=== PATIENT | male | born 1970 | race Caucasian/White ===

== ENCOUNTER 2024-01-30 14:22 | Inpatient (IN) | payer MEDICAID ==
[~2024-01-30] VITALS: Ht 170.2 cm; Wt 68.0 kg
[2024-01-30 14:22] VITALS: BP 164/108; PULSE 82; RESP 14; TEMP 97.1; O2SAT 100
[2024-01-30] MEDS: ASPIRIN 81 MG TAB.CHEW PO ONE (14:39)
[2024-01-30 15:14] LABS: BASOPHILS # (AUTO) 0.1 K/uL (0.00-0.22); BASOPHILS % (AUTO) 1.3 % (0.0-2.0); EOSINOPHILS # (AUTO) 0.1 K/uL (0-0.4); EOSINOPHILS % (AUTO) 2.6 % (0.0-4.0); HEMATOCRIT 33.4 % (36-52); HEMOGLOBIN 11.2 g/dL (12.0-18.0); LYMPHOCYTES # (AUTO) 1.3 K/uL (2.0-11.5); LYMPHOCYTES % (AUTO) 27.8 % (20.5-51.1); MEAN CORPUSCULAR HEMOGLOBIN 29 pg (27-31); MEAN CORPUSCULAR HGB CONC 34 g/dL (33-37); MEAN CORPUSCULAR VOLUME 86.9 fL (80-94); MONOCYTES # (AUTO) 0.5 K/uL (0.8-1.0); MONOCYTES % (AUTO) 10.2 % (1.7-9.3); NEUTROPHILS # (AUTO) 2.7 K/uL (1.8-7.7); NEUTROPHILS % (AUTO) 58.1 % (42.2-75.2); PLATELET COUNT (AUTO) 222 K/uL (140-450); RED BLOOD CELL COUNT(AUTO) 3.84 MIL/uL (4.20-6.10); RED CELL DISTRIBUTION WIDTH 14.5 % (11.6-13.7); WHITE BLOOD COUNT (AUTO) 4.6 K/uL (4.8-10.8)
[2024-01-30 15:36] LABS: CALCIUM 8.4 mg/dL (8.5-10.1); CARBON DIOXIDE 24.6 mmol/L (21-32); POTASSIUM 4.6 mmol/L (3.5-5.1)
[2024-01-30] MEDS ORDERED: [UNRECOGNIZED DRUG - CODE] PO (16:32)
[2024-01-30] MEDS ORDERED: NIFE60TA58 PO (16:32)
[2024-01-30] MEDS ORDERED: CLON0.1T16 PO (16:32)
[2024-01-30] MEDS ORDERED: DICL100G32 TP (16:32)
[2024-01-30] MEDS ORDERED: DAPA5TAB PO (16:32)
[2024-01-30] MEDS ORDERED: CHLO25TA33 PO (16:32)
[2024-01-30] MEDS ORDERED: ATOR40TA40 PO (16:32)
[2024-01-30] MEDS ORDERED: LORazepam 1 MG TAB PO PRN (19:15)
[2024-01-30] MEDS ORDERED: ACETAMINOPHEN 325 MG TAB PO PRN (19:15)
[2024-01-30] MEDS ORDERED: ZOLPIDEM 5 MG TAB PO PRN (19:15)
[2024-01-30] MEDS ORDERED: HYDROcodone/APAP 5/325 MG 1 TAB TAB PO PRN (19:15)
[2024-01-30] MEDS ORDERED: ONDANSETRON 4 MG/2 ML VIAL IVP PRN (19:15)
[2024-01-30] MEDS ORDERED: ALUMINUM HYD/MAG/SIMETHICONE 30 ML UDC PO PRN (19:20)
[2024-01-30] MEDS ORDERED: MORPHINE SULFATE 4 MG/ML SYR IV PRN (19:20)
[2024-01-30] MEDS ORDERED: NITROGLYCERIN 0.4 MG TAB SL PRN (19:20)
[2024-01-30] MEDS: hydrALAZINE 20 MG/ML VIAL IVP PRN (20:57)
[2024-01-30] MEDS: carvediloL 6.25 MG TAB PO SCH (21:07)
[2024-01-30] MEDS: SIMVASTATIN 40 MG TAB PO SCH (21:08)
[2024-01-30 21:55] VITALS: BP 147/63; PULSE 77; RESP 18; TEMP 97.3; O2SAT 100
[2024-01-30 21:56] VITALS: PULSE 80
[2024-01-31] VITALS (8 sets, daily range): BP systolic 135–163; BP diastolic 62–75; PULSE 61–81; RESP 17–19; TEMP 97.1–98.5; O2SAT 97–99
[2024-01-31 07:21] LABS: BASOPHILS # (AUTO) 0.1 K/uL (0.00-0.22); BASOPHILS % (AUTO) 1.3 % (0.0-2.0); EOSINOPHILS # (AUTO) 0.2 K/uL (0-0.4); EOSINOPHILS % (AUTO) 4.3 % (0.0-4.0); HEMATOCRIT 34.5 % (36-52); HEMOGLOBIN 11.5 g/dL (12.0-18.0); LYMPHOCYTES # (AUTO) 1.9 K/uL (2.0-11.5); LYMPHOCYTES % (AUTO) 34.8 % (20.5-51.1); MEAN CORPUSCULAR HEMOGLOBIN 29 pg (27-31); MEAN CORPUSCULAR HGB CONC 34 g/dL (33-37); MEAN CORPUSCULAR VOLUME 86.6 fL (80-94); MONOCYTES # (AUTO) 0.6 K/uL (0.8-1.0); MONOCYTES % (AUTO) 11.1 % (1.7-9.3); NEUTROPHILS # (AUTO) 2.6 K/uL (1.8-7.7); NEUTROPHILS % (AUTO) 48.5 % (42.2-75.2); PLATELET COUNT (AUTO) 218 K/uL (140-450); RED BLOOD CELL COUNT(AUTO) 3.99 MIL/uL (4.20-6.10); RED CELL DISTRIBUTION WIDTH 14.4 % (11.6-13.7); WHITE BLOOD COUNT (AUTO) 5.3 K/uL (4.8-10.8)
[2024-01-31 07:42] LABS: ALBUMIN 3.1 g/dL (3.4-5.0); ANION GAP 13.5 (8-16); CALCIUM 8.8 mg/dL (8.5-10.1); CARBON DIOXIDE 23.9 mmol/L (21-32); CREATININE 2.5 mg/dL (0.6-1.3); POTASSIUM 4.4 mmol/L (3.5-5.1); TOTAL BILIRUBIN 0.3 mg/dL (0.0-1.0); TOTAL PROTEIN, SERUM 6.9 g/dL (6.4-8.2)
[2024-01-31 08:14] LABS: CHOL/HDL RATIO 3.4 (1-4.5)
[2024-01-31] MEDS: DOCUSATE SODIUM 100 MG GELCAP PO SCH (08:23)
[2024-01-31] MEDS: LOSARTAN 25 MG TAB PO SCH (08:23)
[2024-01-31] MEDS: ASPIRIN 81 MG TAB.CHEW PO SCH (09:00)
[2024-01-31] MEDS: NIFEdipine 60 MG TABER PO SCH (14:13)
[2024-01-31] MEDS: CLONIDINE HYDROCHLORIDE 0.1 MG TAB PO SCH (15:11)
[2024-01-31] MEDS: METOPROLOL 50 MG TAB PO SCH (20:38)
[2024-02-01] VITALS (8 sets, daily range): BP systolic 112–132; BP diastolic 54–85; PULSE 52–65; RESP 18–19; TEMP 97–98.2; O2SAT 98–99
[2024-02-01 07:21] LABS: BASOPHILS # (AUTO) 0.1 K/uL (0.00-0.22); BASOPHILS % (AUTO) 1.1 % (0.0-2.0); EOSINOPHILS # (AUTO) 0.2 K/uL (0-0.4); EOSINOPHILS % (AUTO) 4.6 % (0.0-4.0); HEMATOCRIT 34.7 % (36-52); HEMOGLOBIN 11.4 g/dL (12.0-18.0); LYMPHOCYTES # (AUTO) 2.3 K/uL (2.0-11.5); LYMPHOCYTES % (AUTO) 42.1 % (20.5-51.1); MEAN CORPUSCULAR HEMOGLOBIN 29 pg (27-31); MEAN CORPUSCULAR HGB CONC 33 g/dL (33-37); MEAN CORPUSCULAR VOLUME 86.7 fL (80-94); MONOCYTES # (AUTO) 0.6 K/uL (0.8-1.0); MONOCYTES % (AUTO) 10.5 % (1.7-9.3); NEUTROPHILS # (AUTO) 2.3 K/uL (1.8-7.7); NEUTROPHILS % (AUTO) 41.7 % (42.2-75.2); PLATELET COUNT (AUTO) 220 K/uL (140-450); RED BLOOD CELL COUNT(AUTO) 4.01 MIL/uL (4.20-6.10); RED CELL DISTRIBUTION WIDTH 14.7 % (11.6-13.7); WHITE BLOOD COUNT (AUTO) 5.4 K/uL (4.8-10.8)
[2024-02-01 07:42] LABS: ALBUMIN 2.9 g/dL (3.4-5.0); ANION GAP 12.3 (8-16); CALCIUM 8.8 mg/dL (8.5-10.1); CARBON DIOXIDE 26.7 mmol/L (21-32); CREATININE 2.8 mg/dL (0.6-1.3); TOTAL BILIRUBIN 0.3 mg/dL (0.0-1.0); TOTAL PROTEIN, SERUM 6.6 g/dL (6.4-8.2)
[2024-02-01] MEDS ORDERED: CLONIDINE HYDROCHLORIDE 0.1 MG TAB PO SCH (09:00)
[2024-02-01] MEDS: LOSARTAN 25 MG TAB PO SCH (09:43)
[2024-02-01] MEDS: ATORVASTATIN 20 MG TAB PO SCH (09:44)
[2024-02-01 14:24] LABS: BILIRUBIN,URINE NEGATIVE (NEGATIVE); BLOOD, URINE NEGATIVE (NEGATIVE); COLOR,URINE YELLOW (YELLOW); LEUKOCYTE ESTERASE ,URINE NEGATIVE (NEGATIVE); NITRITE, URINE NEGATIVE (NEGATIVE); PROTEIN,URINE 2+ (NEGATIVE); UGLUCOSE 3+ (NEGATIVE); UROBILINOGEN,URINE 0.2 EU/dL (0.2 - 1)
[2024-02-01 14:25] LABS: APPEARANCE,URINE SLIGHTLY HAZY (CLEAR)
[2024-02-01 14:28] LABS: BACTERIA,URINE 2+ /HPF (None Seen); MUCUS,URINE None Seen /LPF (None Seen); RBC,URINE 0-5 /HPF (0-5); SQUAMOUS EPITHELIAL CELL,UR 0-3 (FEW) /LPF (0-3 (FEW)); WBC,URINE 0-5 /HPF (0-5)
[2024-02-01 14:34] LABS: URINE TOTAL PROTEIN 95.6 mg/dL (0-12); URINE TPRO CREAT RATIO 1.1 (0-0.20)
[2024-02-01] MEDS ORDERED: ASPI81CT95 PO (17:58)
[2024-02-01] MEDS ORDERED: ATOR20TA40 PO (17:58)
[2024-02-01] MEDS ORDERED: NIFE60TA39 PO (17:58)
[2024-02-01] MEDS ORDERED: LOSA-269 PO (17:58)
[2024-02-01] MEDS ORDERED: METO50TA99 PO (17:58)
== END 2024-02-01 21:35 | disposition home or self-care (01) | DRG 199 ==
LOC: MED 14:22 → MTU 19:16
PROVIDERS: ADMIT Student in an Organized Health Care Education/Training Program; ATTEND Student in an Organized Health Care Education/Training Program
DX: I16.9 Hypertensive crisis, unspecified (principal); I21.A1 Myocardial infarction type 2; E11.22 Type 2 diabetes mellitus with diabetic chronic kidney disease; I47.19 Other supraventricular tachycardia; N18.4 Chronic kidney disease, stage 4 (severe); E78.5 Hyperlipidemia, unspecified; I12.9 Hypertensive chronic kidney disease with stage 1 through stage 4 chronic kidney disease, or unspecified chronic kidney disease; Z79.899 Other long term (current) drug therapy
CPT/HCPCS: 36415; 71045; 76770; 80048; 80053; 81001; 82570; 82948; 83036; 83721; 83880; 84484; 85025; 87081; 93005; 99285; J0360; J1644; Q0092